=== PATIENT | male | born 1930 | race Caucasian/White ===

== ENCOUNTER 2016-12-24 19:47 | Emergency (ER) | payer MEDICARE ==
[2016-12-24 19:48] VITALS: BMI 30.2
[2016-12-24] MEDS ORDERED: SODIUM CHLORIDE 0.9% 10 ML FLUSH FLUSH PRN (19:58)
[2016-12-24 19:59] VITALS: TEMP 98.4
--- NOTE | 2016-12-24 20:03 | EDPRACDOC ---
- General Information Stated Complaint: FALL Time Seen by Provider: 12/24/16 19:53 Information Source: Patient Mode Of Arrival: Ambulance Home Medications: Home Medications Acetaminophen [Mapap] 650 mg PO Q4H PRN 06/11/16 Albuterol/Ipratropium Neb [Duoneb] 3 ml NEB TID 06/11/16 Aspirin [Chewable Aspirin] 81 mg PO DAILY 06/11/16 Atorvastatin Calcium [Lipitor] 40 mg PO HS 06/11/16 Carvedilol [Coreg] 3.125 mg PO BID 06/11/16 Cholecalciferol (Vitamin D3) [Vitamin D3] 1,000 unit PO DAILY 06/11/16 Clopidogrel Bisulfate [Plavix] 75 mg PO DAILY 06/11/16 Cyanocobalamin (Vitamin B-12) [B-12] 500 mcg PO DAILY 06/11/16 Esomeprazole Mag Trihydrate [Nexium] 40 mg PO DAILY 06/11/16 Fluticasone/Salmeterol [Advair 250-50] 1 puff INH BID 06/11/16 Furosemide [Lasix] 20 mg PO DAILY 06/11/16 Insulin Aspart [Novolog] 2 units SQ .W/LUNCH 06/11/16 Insulin Aspart [Novolog] 10 units SQ .W/SUPPER 06/11/16 Insulin Aspart [Novolog] 12 units SQ .W/BREAKFAST 06/11/16 Insulin Detemir [Levemir] 39 unit SQ HS 06/11/16 Isosorbide Mononitrate [Isosorbide Mononitrate ER] 30 mg PO HS 06/11/16 Nitroglycerin [Nitrostat] 0.4 mg SL Q5MX3 PRN 06/11/16 PEG-Electrolytes (Miralax) [Miralax] 17 gm PO DAILY PRN 06/11/16 Potassium Chloride [Klor-Con 10] 10 meq PO DAILY 06/11/16 Venlafaxine HCl ER [Effexor XR] 150 mg PO .DAILY W/BREAKFAST 06/11/16 Vit A/Vit C/Vit E/Zinc/Copper [Preservision Areds Softgel] 1 cap PO BID Lisinopril [Zestril] 2.5 mg PO DAILY 12/24/16 Menthol/Aloe Vera Extract [Icy Hot 16% Power Gel] 1 applic TOP Q4H PRN 12/24/16 Phosp Acid/Dextrose/Fructose [Emetrol Oral Solution] 2 tbsp PO Q15MX4 PRN Allergies/Adverse Reactions: Allergies Allergy/AdvReac Type Severity Reaction Status Date / Time No Known Allergies Allergy Verified 08/18/16 18:01 - History of Present Illness Onset: HOME [employer]ACHING [employer] 9 [employer]RU [employer] Exact Onset of Symptoms: Unknown HPI: Pt states he felt dizzy and fell. C/o L maxillary pain. Denies LOC, vision changes, n/v, neck or back pain, cp, sob, abd pain, loss of control bowel or bladder, rash, leg swelling. Pt on plavix Symptoms Started: Reports: Gradually Symptoms Description: Constant Weakness: Bilateral: Generalized Symptoms: Reports: Vertigo, Weak Symptom Severity: Reports: Unable to performs ADL's Associated signs and symptoms:: Reports: None ED Past Medical History - History Reviewed Yes Nurses notes reviewed and agree except as marked - Patient Medical History Neurological History: Reports: Dementia Cardiac History: Reports: Atrial Fibrillation, Hypertension, Hypercholesterolemia Respiratory History: Reports: COPD Psychological History: Denies: Depression Systemic History: Reports: Diabetes Surgical History: Reports: Cholecystectomy - Social Medical History Smoking Status: Never smoker (chews tobacco) ETOH: None Substance Abuse: None EDM Review of Systems - Review of Systems Constitutional: No Symptoms Reported. negative: Fever, Chills, Weakness, Fatigue, Loss of Appetite Eyes: No Symptoms Reported. negative: Redness, Blurred Vision, Double Vision, Discharge, Pain, Light Sensitive, Photophobia Ears: No Symptoms Reported. negative: Pain, Hearing Loss, Drainage, Ear Pulling Throat: No Symptoms Reported. negative: Pain, Swelling Nose: No Symptoms Reported. negative: Congestion, Bleeding, Discharge, Injection, Swelling, Deformity, Ecchymosis, Tender, Abrasion, Laceration Mouth: No Symptoms Reported. negative: Pain, Drooling Respiratory: No Symptoms Reported. negative: Cough, Brassy Cough, Barky Cough, Shortness of Breath, Wheezing, Hemoptysis Cardiovascular: No Symptoms Reported. negative: Chest Pain, Palpitations, Syncope, Edema, Orthopnea, PND, Skin Mottling, Cyanosis Gastrointestinal: No Symptoms Reported. negative: Pain, Constipation, Nausea, Vomiting, Diarrhea, Melena, Formula Intolerance Genitourinary: No Symptoms Reported. negative: Dysuria, Hematuria, Frequency, Discharge, Bleeding, Testicular Pain, Neurological: Dizziness Musculoskeletal: No Symptoms Reported. negative: Neck, Chestwall, Ribs, Back, Shoulder, Arm, Elbow, Forearm, Wrist, Hand, Pelvis, Hip, Femur, Knee, Leg, Ankle , Foot Integumentary: Wound Allergic/Immunologic: No Symptoms Reported. negative: Hives, Itching Hematologic: No Symptoms Reported. negative: Lymphadenopathy, Easy Bruising, Easy Bleeding Psychiatric: No Symptoms Reported. negative: Anxiety, Depression, Hallucinations, Insomnia, Suicidal - Physical Exam Constitutional: No apparent distress, Alert Oriented to: Time, Person, Place Last recorded Vital Signs: Last Vital Signs Temp 98.4 F 12/24/16 19:51 Pulse 64 12/24/16 19:51 Resp 18 12/24/16 19:51 BP 143/68 12/24/16 19:51 Pulse Ox 95 12/24/16 19:51 Oxygen Pulse Oxygen Saturation 95 O2 Device Oxygen Flow Rate Fraction of Inspired Oxygen ( FIO2) - HEENT Head: Normal ( normocephalic) Eye Exam: Normal (PERRL, EOMI, Sclera white) Oropharynx: Normal (Pharynx:Moist without exudate,Gums-no swelling) Tympanic Membrane: Normal ENT EAC: Normal TMJ: Normal Nose: No Symptoms Reported (septum midline) Neck: Normal (FROM, trachea at midline) HEENT Comment: L maxillary tenderness with abrasion - Respiratory/Cardiovascular Respiratory: Normal - CTA (BBS clear to auscultation without adventitious sounds ) Cardiovascular: Normal (RRR without murmur, gallop or rub) - GI Auscultation: Normal (NABS) Palpation: Normal (Soft,No rebound or guarding, non distended) Tenderness: Non tender - Musculoskeletal Back: Normal (Non-Tender) Extremities: Normal (Normal tone, Pulses 2+ No cyanosis or edema, FROM) - Integumentary Skin: Normal, Warm, Dry Lymphatics: Normal (no adenopathy) - Neurologic Memory Impaired: Normal Motor Function: Normal (Normal tone, Pulses 2+ No cyanosis or edema, FROM) Mood Description: Normal Perception: Normal - Differential Diagnosis CVA, Dehydration, Dysrhythmia, Electrolyte disorder, Hypoglycemia, Vertigo - Results 12/24/16 20:04 12/24/16 20:04 12/24/16 21:09 Laboratory Results - last 24 hr 12/24/16 12/24/16 12/24/16 20:04 20:04 20:04 WBC 11.6 H RBC 4.76 Hgb 15.1 Hct 45.6 MCV 96 H MCH 31.7 MCHC 33.0 RDW 14.2 Plt Count 195 MPV 8.2 Neut % (Auto) 69.1 Lymph % (Auto) 17.4 [place] % (Auto) 9.1 Eos % (Auto) 3.3 Baso % (Auto) 1.1 Absolute Neuts (auto) 8.00 Absolute Lymphs (auto) 1.97 PT 11.9 H INR 1.2 APTT 27.3 Sodium 140 Potassium 4.6 Chloride 104 Carbon Dioxide 27 Anion Gap 14 BUN 27 H Creatinine 1.10 Estimated GFR (MDRD) > 60 Glucose 124 H Calculated Osmolality 275 Calcium 8.7 Corrected Calcium 9.0 Total Bilirubin 0.7 AST 22 ALT 26 Alkaline Phosphatase 158 Troponin I < 0.01 Total Protein 7.3 Albumin 3.7 Urine Color Urine Clarity Urine pH Ur Specific [place] Urine Protein Urine Glucose (UA) Urine Ketones Urine Occult Blood Urine Nitrite Urine Bilirubin Urine Urobilinogen Ur Leukocyte Esterase Ur Epithelial Cells Urine Mucus 12/24/16 20:30 WBC RBC Hgb Hct MCV MCH MCHC RDW Plt Count MPV Neut % (Auto) Lymph % (Auto) [place] % (Auto) Eos % (Auto) Baso % (Auto) Absolute Neuts (auto) Absolute Lymphs (auto) PT INR APTT Sodium Potassium Chloride Carbon Dioxide Anion Gap BUN Creatinine Estimated GFR (MDRD) Glucose Calculated Osmolality Calcium Corrected Calcium Total Bilirubin AST ALT Alkaline Phosphatase Troponin I Total Protein Albumin Urine Color Pale yellow Urine Clarity Clear Urine pH 5.0 Ur Specific [place] 1.025 Urine Protein Neg Urine Glucose (UA) Neg Urine Ketones Neg Urine Occult Blood Neg Urine Nitrite Neg Urine Bilirubin Neg Urine Urobilinogen 2 H Ur Leukocyte Esterase Neg Ur Epithelial Cells Occ Urine Mucus Occ - EKG EKG #1 EKG Time: 20:07 Rate: bpm: 63 [place]: Normal Rhythm: Afib ST: Normal Comparison: 08/18/16 - Diagnostic Imaging Head Image interpreted by: Radiologist IMPRESSION: 1. No evidence of significant acute traumatic injury to the skull, brain, facial bones or cervical spine. 2. Mild cerebral and cerebellar atrophy with chronic microvascular ischemic changes in the cerebral white matter, as above. 3. Mild multilevel degenerative disc disease and cervical spondylosis, as above. Chest Image interpreted by: Radiologist IMPRESSION: No acute process allowing for differences in technique. Decision Time to Discharge: 21:09 - Departure Disposition: Home Condition: Good Final Diagnosis: Attacks of weakness Contusion of face Qualifiers: Encounter type: initial encounter Qualified Code(s): S00.83XA - Contusion of other part of head, initial encounter Instructions: Contusion in Adults (ED), Weakness (ED) Education/Counseling Given To: Patient Education/Counseling Given Regarding: Diagnosis, Treatment, Follow Up Referrals: Jose Thorne MD [Primary Care Provider] - One Week Prescriptions: No Action PEG-Electrolytes (Miralax) [Miralax] 17 gm PO DAILY PRN PRN Reason: Constipation Nitroglycerin [Nitrostat] 0.4 mg SL Q5MX3 PRN PRN Reason: Chest Pain Or Discomfort Cholecalciferol (Vitamin D3) [Vitamin D3] 1,000 unit PO DAILY Acetaminophen [Mapap] 650 mg PO Q4H PRN PRN Reason: Pain Venlafaxine HCl ER [Effexor XR] 150 mg PO .DAILY W/BREAKFAST Cyanocobalamin (Vitamin B-12) [B-12] 500 mcg PO DAILY Vit A/Vit C/Vit E/Zinc/Copper [Preservision Areds Softgel] 1 cap PO BID Insulin Aspart [Novolog] 2 units SQ .W/LUNCH Insulin Aspart [Novolog] 10 units SQ .W/SUPPER Insulin Aspart [Novolog] 12 units SQ .W/BREAKFAST Potassium Chloride [Klor-Con 10] 10 meq PO DAILY Isosorbide Mononitrate [Isosorbide Mononitrate ER] 30 mg PO HS Insulin Detemir [Levemir] 39 unit SQ HS Furosemide [Lasix] 20 mg PO DAILY Esomeprazole Mag Trihydrate [Nexium] 40 mg PO DAILY Albuterol/Ipratropium Neb [Duoneb] 3 ml NEB TID Clopidogrel Bisulfate [Plavix] 75 mg PO DAILY Carvedilol [Coreg] 3.125 mg PO BID Atorvastatin Calcium [Lipitor] 40 mg PO HS Fluticasone/Salmeterol [Advair 250-50] 1 puff INH BID Aspirin [Chewable Aspirin] 81 mg PO DAILY Phosp Acid/Dextrose/Fructose [Emetrol Oral Solution] 2 tbsp PO Q15MX4 PRN PRN Reason: Nausea Lisinopril [Zestril] 2.5 mg PO DAILY Menthol/Aloe Vera Extract [Icy Hot 16% Power Gel] 1 applic TOP Q4H PRN PRN Reason: LEG PAIN Additional Instructions: Return for worse or different symptoms.
[2016-12-24 20:20] LABS: AUTOMATED BASOPHIL 1.1 % (0-2); AUTOMATED EOSINOPHIL 3.3 % (0-5); AUTOMATED LYMPH 17.4 % (17-44); AUTOMATED MONOCYTE 9.1 % (3-10); AUTOMATED NEUTROPHIL 69.1 % (45-76); MPV 8.2 fL (7.4-10.4)
[2016-12-24 20:29] LABS: PARTIAL THROMB. TIME 27.3 SEC (22-35); PT-INR 1.2
[2016-12-24 20:31] LABS: BLOOD UREA NITROGEN 27 MG/DL (9-20); CALCIUM 8.7 MG/DL (8.4-10.2); CALCULATED OSMOLALITY 275 MOs/Kg (270-290); CHLORIDE 104 mEq/L (98-107); GLUCOSE 124 mg/dL (70-99); SODIUM LEVEL 140 mEq/L (137-146); TOTAL PROTEIN 7.3 G/DL (6.3-8.2)
[2016-12-24] MEDS ORDERED: NS 500 ML IV ONE (20:36)
--- NOTE | 2016-12-24 20:42 | DIRPT ---
CLINICAL DATA: Dizziness. Fall at home today. EXAM: PORTABLE CHEST 1 VIEW COMPARISON: Frontal and lateral views 09/25/2015 FINDINGS: Chronic elevation of right hemidiaphragm, unchanged from prior. Enlargement of the cardiac silhouette, unchanged allowing for differences in technique. No confluent airspace disease, large pleural effusion or pneumothorax. Osseous structures are stable. IMPRESSION: No acute process allowing for differences in technique. Electronically Signed By: Geraldine Eaton M.D. On: 12/24/2016 20:39
--- NOTE | 2016-12-24 20:46 | DIRPT ---
CLINICAL DATA: 86-year-old male with history of trauma from a fall today with injury to the left thigh. Headache. Dizziness prior to the fall. EXAM: CT HEAD WITHOUT CONTRAST CT MAXILLOFACIAL WITHOUT CONTRAST CT CERVICAL SPINE WITHOUT CONTRAST TECHNIQUE: Multidetector CT imaging of the head, cervical spine, and maxillofacial structures were performed using the standard protocol without intravenous contrast. Multiplanar CT image reconstructions of the cervical spine and maxillofacial structures were also generated. COMPARISON: None. Head CT 08/18/2016. FINDINGS: CT HEAD FINDINGS Mild cerebral and cerebellar atrophy. Patchy and confluent areas of decreased attenuation are noted throughout the deep and periventricular white matter of the cerebral hemispheres bilaterally, compatible with chronic microvascular ischemic disease. No acute displaced skull fractures are identified. No acute intracranial abnormality. Specifically, no evidence of acute post-traumatic intracranial hemorrhage, no definite regions of acute/subacute cerebral ischemia, no focal mass, mass effect, hydrocephalus or abnormal intra or extra-axial fluid collections. The visualized paranasal sinuses and mastoids are well pneumatized. CT MAXILLOFACIAL FINDINGS No displaced fractures of the facial bones are identified. Specifically, pterygoid plates are intact. The mandible is intact, and mandibular condyles are located bilaterally. Bilateral globes and retro-orbital soft tissues are grossly normal in appearance. The patient is edentulous. CT CERVICAL SPINE FINDINGS No acute displaced fracture of the cervical spine. Mild reversal of normal cervical lordosis centered at the level of C5-C6, likely chronic and degenerative. 3 mm of anterolisthesis of C4 upon C5. Alignment is otherwise anatomic. Prevertebral soft tissues are normal. Multilevel degenerative disc disease, most severe at C5-C6. Mild multilevel facet arthropathy. Visualized portions of the upper thorax are unremarkable. IMPRESSION: 1. No evidence of significant acute traumatic injury to the skull, brain, facial bones or cervical spine. 2. Mild cerebral and cerebellar atrophy with chronic microvascular ischemic changes in the cerebral white matter, as above. 3. Mild multilevel degenerative disc disease and cervical spondylosis, as above. Electronically Signed By: Phillip Lake M.D. On: 12/24/2016 20:44
[2016-12-24 20:57] LABS: LEUKOCYTES/URINE NEG (NEGATIVE); NITRITE/URINE NEG (NEGATIVE); URINE OCCULT BLOOD NEG (NEG/TRACE)
[2016-12-24] MEDS ORDERED: NS 1,000 ML IV SCH (21:00)
[2016-12-24 21:27] VITALS: BP 127/69; PULSE 62
== END 2016-12-24 21:25 ==
LOC: ED 19:47
DX: S00.83XA Contusion of other part of head, initial encounter (principal); W19.XXXA Unspecified fall, initial encounter; R53.1 Weakness; R42 Dizziness and giddiness
CPT/HCPCS: 36415; 70450; 70486; 71010; 72125; 80053; 81001; 84484; 85025; 85610; 85730; 93005; 96360; 99284